=== PATIENT | male | born 1945 | race Caucasian/White ===

== ENCOUNTER → 2016-03-22 | Outpatient (CLI) | payer OTHER | END | disposition home or self-care (01) | LOC: PCVCIMAG 10:44 | PROVIDERS: ATTEND Internal Medicine Cardiovascular Disease | DX: I25.10 Atherosclerotic heart disease of native coronary artery without angina pectoris (principal); Z95.5 Presence of coronary angioplasty implant and graft | CPT/HCPCS: 93325; 93351 ==

== ENCOUNTER → 2017-10-11 | Outpatient (CLI) | payer OTHER ==
--- NOTE | 2017-10-11 12:33 | PCVCIMAG ---
EXAM: BILATERAL RENAL ULTRASOUND AND BILATERAL RENAL DUPLEX INDICATION: Hypertension FINDINGS: Right kidney: Length measures 10.5 cm. No hydronephrosis or extensive renal scarring. 2.5 cm benign cyst upper pole. 3.1 cm benign cyst midpole. Right renal duplex: Adequate technical quality. No sonographic evidence of renal artery stenosis. The aortic to renal artery ratio is 2.1. The renal vein is patent. Left kidney: Length measures 10.0 cm. No hydronephrosis or extensive renal scarring. 2.8 cm benign cyst midpole. 1.4 cm benign cyst mid/upper pole. Left renal duplex: Adequate technical quality. No sonographic evidence of renal artery stenosis. The aortic to renal artery ratio is 1.4. The renal vein is patent. Bladder: No obvious abnormalities. IMPRESSION: No significant renal artery stenosis. No hydronephrosis bilaterally. No change since January 2016 study. LOC:[id number]
--- NOTE | 2017-10-14 17:19 | PCVCIMAG ---
APPROVED REPORT Study performed: 10/11/2017 11:20:39 Exam: Stress Echocardiogram Indication: CAD , Cardiomyopathy, Hyperlipidemia, Hypertension Patient Location: Echo lab Stress Nurse: Theodora Mei RN Status: routine Ht: 5 ft 10 in HR: 54 bpm BP: 118/80 mmHg Rhythm: NSR Procedure The patient underwent an Exercise Stress Test using the Nitin Protocol. Blood pressure, heart rate, and EKG were monitored. An Echocardiogram was performed by fire protection engineering technician in four stages in quad fashion. At peak stress, four selected images were obtained and placed side by side with resting images for comparison. Stress Test Details Stress Test: Exercise stress testing was performed using a Nitin protocol. HR Resting HR: 54 bpmMax Heart Rate (APMHR): 147 bpm Max HR Achieved: 129 bpmTarget HR (85% APMHR): 124 bpm % of APMHR: 87 Recovery HR: 77 bpm HR response to stress: Normal HR response to stress BP Resting BP: 118/80 mmHg Max BP: 150/80 mmHg Recovery BP: 132/80 mmHg ECG Resting ECG: Sinus Rhythm Stress ECG: Sinus Rhythm Recovery ECG: Sinus Rhythm Clinical Reason for Termination: Maximal effort Exercise duration: 6 min 48 sec Highest Stage Achieved: Stage 3: 3.4 mph at 14% grade. Exercise capacity: 9.40 METs Overall Exercise Capacity for Age: Normal Stress ECG Conclusion ECG: Non-ischemic Clinical: Non-ischemic Pre-Stress Echo The resting Echocardiogram showed low normal left ventricular contractility with an estimated Ejection Fraction of about 50-55%. Apical, apical anteroseptal akinesis consistent with a known old PR. Post-Stress Echo The stress Echocardiogram showed global normal left ventricular contractility with an estimated Ejection Fraction of about 60-65%. LV regional wall motion abnormalities as listed above were seen. No new wall motion abnormalities were seen. Normal augmentation of wall motion in all segments on post stress images. Clinical No clinical or ECG evidence for ischemia. Conclusion Clinical Response: Non-ischemic Exercise Capacity: Average Stress ECG Response: Non-ischemic Stress Echo Images: Non-ischemic The left ventricle is normal in size and wall thickness in both the rest and stress images. Other Information Study Quality: Adequate <Conclusion> The left ventricle is normal in size and wall thickness in both the rest and stress images.
== END | disposition home or self-care (01) ==
LOC: PCVCIMAG 14:45
PROVIDERS: ATTEND Internal Medicine Cardiovascular Disease
DX: I70.1 Atherosclerosis of renal artery (principal); I10 Essential (primary) hypertension
CPT/HCPCS: 76770; 93325; 93351; 93975

== ENCOUNTER → 2018-05-16 | Outpatient (CLI) | payer OTHER | END | disposition home or self-care (01) | LOC: PCVCCLINIC 14:19 | PROVIDERS: ATTEND Internal Medicine Cardiovascular Disease | DX: I25.10 Atherosclerotic heart disease of native coronary artery without angina pectoris (principal); I73.9 Peripheral vascular disease, unspecified; I25.5 Ischemic cardiomyopathy; I70.1 Atherosclerosis of renal artery; I10 Essential (primary) hypertension; E78.00 Pure hypercholesterolemia, unspecified; Z79.899 Other long term (current) drug therapy | CPT/HCPCS: 36415; 80061; 93005; G0463 ==

== ENCOUNTER → 2018-06-23 | Outpatient (CLI) | payer OTHER ==
--- NOTE | 2018-06-23 17:00 | PCVCIMAG ---
APPROVED REPORT Study performed: 06/23/2018 16:11:21 Exam: Stress Echocardiogram Indication: CAD s/p IN, CAD s/p PCI, Pre-Operative CV evaluation Patient Location: Echo lab Stress Nurse: Sweta Red RN Status: routine Ht: 5 ft 10 in HR: 60 bpm BP: 118/70 mmHg Rhythm: NSR Procedure The patient underwent an Exercise Stress Test using the Nitin Protocol. Blood pressure, heart rate, and EKG were monitored. An Echocardiogram was performed by printing technician in four stages in quad fashion. At peak stress, four selected images were obtained and placed side by side with resting images for comparison. Stress Test Details Stress Test: Exercise stress testing was performed using a Nitin protocol. HR Resting HR: 60 bpmMax Heart Rate (APMHR): 147 bpm Max HR Achieved: 117 bpmTarget HR (85% APMHR): 124 bpm % of APMHR: 79 Recovery HR: 71 bpm HR response to stress: Normal HR response to stress BP Resting BP: 118/70 mmHg Max BP: 148/78 mmHg Recovery BP: 140/66 mmHg BP response to stress: Normal blood pressure response to stress. ECG Resting ECG: Sinus Rhythm Stress ECG: Sinus Rhythm ST Change: Normal Arrhythmia: None Recovery ECG: Sinus Rhythm Recovery ST Change: Normal Recovery Arrhythmia: None Clinical Reason for Termination: Maximal effort, Dyspnea Stress Symptoms: Dyspnea Exercise duration: 6 min 30 sec Highest Stage Achieved: Stage 3: 3.4 mph at 14% grade. Exercise capacity: 8.4 METs Overall Exercise Capacity for Age: Normal Scale: Sedentary Angina Score: None Pre-Stress Echo The resting Echocardiogram showed normal left ventricular contractility with an estimated Ejection Fraction of about 50%. Fixed apical akinesis due to known old IN. Normal wall motion in all other segments on baseline images. Post-Stress Echo The stress Echocardiogram showed normal left ventricular contractility with an estimated Ejection Fraction of about 60%. Normal augmentation of wall motion in all segments on post stress images. Clinical No clinical or ECG evidence for ischemia. Conclusion Clinical Response: Non-ischemic Exercise Capacity: Average Stress ECG Response: Non-ischemic Stress Echo Images: Non-ischemic Slightly submaximal heart rate response with patient on Coreg. The left ventricle is normal in size and wall thickness in both the rest and stress images. Other Information Study Quality: Adequate <Conclusion> Slightly submaximal heart rate response with patient on Coreg. The left ventricle is normal in size and wall thickness in both the rest and stress images.
== END | disposition home or self-care (01) ==
LOC: PCVCIMAG 15:10
PROVIDERS: ATTEND Internal Medicine Cardiovascular Disease
DX: Z01.810 Encounter for preprocedural cardiovascular examination (principal); I25.10 Atherosclerotic heart disease of native coronary artery without angina pectoris
CPT/HCPCS: 93325; 93351

== ENCOUNTER → 2019-01-01 | Outpatient (CLI) | payer OTHER | LOC: PCVCCLINIC 14:00 | PROVIDERS: ATTEND Internal Medicine Cardiovascular Disease | DX: I25.10 Atherosclerotic heart disease of native coronary artery without angina pectoris (principal); R94.31 Abnormal electrocardiogram [ECG] [EKG]; I42.9 Cardiomyopathy, unspecified; I10 Essential (primary) hypertension; C80.1 Malignant (primary) neoplasm, unspecified; E78.00 Pure hypercholesterolemia, unspecified; I73.9 Peripheral vascular disease, unspecified; I70.1 Atherosclerosis of renal artery; Z79.82 Long term (current) use of aspirin; Z79.899 Other long term (current) drug therapy; Z90.49 Acquired absence of other specified parts of digestive tract; Z90.09 Acquired absence of other part of head and neck; Z82.49 Family history of ischemic heart disease and other diseases of the circulatory system; Z72.89 Other problems related to lifestyle | CPT/HCPCS: 36415; 80061; 93005; G0463 ==